=== PATIENT | male | born 1955 ===

== ENCOUNTER 2018-08-27 07:34 | Day surgery (SDC) | payer OTHER ==
[2018-08-28] MEDS ORDERED: ADULT ASPIRIN81 MG (17:35)
[2018-08-28] MEDS ORDERED: COZAAR100 MG (17:36)
[2018-08-28] MEDS ORDERED: PNEU16DI2 (17:36)
== END 2018-08-27 14:05 | disposition home or self-care (01) ==
LOC: AMB-ENDOS 07:34 → EDBD 13:30 → AMB-ENDOS 13:30
DX: D12.5 Benign neoplasm of sigmoid colon (principal); K64.8 Other hemorrhoids

== ENCOUNTER 2018-08-28 17:09 | Inpatient (IN) | payer OTHER ==
[~2018-08-28] VITALS: Ht 177.8 cm; Wt 99.8 kg
[2018-08-28] MEDS ORDERED: ADULT ASPIRIN81 MG (17:35)
[2018-08-28] MEDS ORDERED: PNEU16DI2 (17:36)
[2018-08-28] MEDS ORDERED: COZAAR100 MG (17:36)
--- NOTE | 2018-08-28 17:37 | NUR ---
PTE SE RECIBE POR BLEEDING ANAL REFIERE PTE.
== END 2018-08-31 13:08 | disposition home or self-care (01) | DRG 920 ==
LOC: ER 17:09 → SURH 17:36 → SEC-K 17:36 → ICU-2 08-29 07:24 → SEC-K 08-30 09:03 → SURH 08-30 12:55
PROVIDERS: ADMIT Surgery
PROC: 30233N1 Transfusion of Nonautologous Red Blood Cells into Peripheral Vein, Percutaneous Approach (ICD-10-PCS; principal; 2018-08-28)
DX: T81.19XA Other postprocedural shock, initial encounter (principal); K62.5 Hemorrhage of anus and rectum; D62 Acute posthemorrhagic anemia; D12.5 Benign neoplasm of sigmoid colon